=== PATIENT | male | born 2000 | race Caucasian/White ===

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

== ENCOUNTER 2023-03-23 12:43 | Outpatient (CLI) | payer BC ==
--- NOTE | 2023-03-23 15:38 | XRAY Report ---
PROCEDURE: Foot 2 View RT INDICATIONS: PAIN IN RIGHT FOOT TECHNIQUE: 2 views of the foot were acquired. COMPARISON: None. FINDINGS: Bones: No fractures or dislocations. No suspicious bony lesions. There is flexion at the ankle praneeth int. This could be positional. Soft tissues: No suspicious soft tissue calcifications or masses. IMPRESSION: No visualized acute fracture or dislocation. However, occult injury cannot be excluded. Recommend leif rt interval imaging follow-up in 7-10 days as clinically indicated for additional evaluation. Reviewed by: Savanna Toro MD on 03/23/2023 3:36 PM PDT Approved by: Savanna Toro MD on 03/23/2023 3:36 PM PDT Station ID: [id number]
== END 2023-03-23 12:44 | disposition home or self-care (01) ==
LOC: DI 12:43
PROVIDERS: ATTEND Nurse Practitioner
DX: M79.671 Pain in right foot (principal)

== ENCOUNTER 2023-05-01 16:44 | Outpatient (CLI) | payer BC ==
--- NOTE | 2023-05-02 11:22 | MRI Report ---
PROCEDURE: ANKLE WO - RT INDICATIONS: RIGHT HEEL PAIN TECHNIQUE: Noncontrast Magnetic Resonance Imaging (MRI) of the ankle/hindfoot was performed utilizing the follow ing sequences: sagittal T1 spin echo, sagittal T2 fast spin echo with fat saturation, axial PD fast s pin echo, axial T2 fast spin echo with fat saturation, coronal T1 spin echo, and coronal T2 fast spin echo with fat saturation. COMPARISON: Right foot radiographs 03/23/2023 FINDINGS: Image quality: Excellent. Bones and joints: No acute trabecular bone injury or fracture. No hindfoot coalition. The ankle mortise is maintained. No osteochondral defect is seen at the talar dome. No significant degenerative changes are seen in t he midfoot or hindfoot. Medial structures: The deltoid ligament and the spring ligament complex are intact. There is tenosynovitis of the armhole sewer ior tibialis, flexor digitorum longus and flexor hallucis longus tendons are intact. The posterior ti bial neurovascular bundle appears normal within the tarsal tunnel, without extrinsic mass effect. Lateral structures: The anterior and posterior distal tibiofibular ligaments are intact. Remote prior sprains of the ante rior talofibular ligament and calcaneofibular ligament. The posterior talofibular ligament is intact. Mild tenosynovitis of the peroneus longus tendon at the plantar aspect of the foot. The peroneus clotilde vis tendon is intact. The sinus tarsi demonstrates normal fatty signal. Anterior structures: The tibialis anterior, extensor hallucis longus, and extensor digitorum longus tendons appear intact. Posterior and plantar structures: The Achilles tendon is intact. The proximal plantar fascia is intact. No disproportionate atrophy of the abductor digiti minimi muscle. IMPRESSION: 1.Mild to moderate tenosynovitis of the medial flexor tendons. 2.Remote prior low-grade sprains of the anterior talofibular ligament and calcaneofibular ligament. 3.Mild distal peroneus longus tendon synovitis at the plantar aspect of the foot. Reviewed by: Rajesh Gruber MD on 05/02/2023 11:21 AM PDT Approved by: Rajesh Gruber MD on 05/02/2023 11:21 AM PDT Station ID: [id number]
== END 2023-05-01 16:45 | disposition home or self-care (01) ==
LOC: DI 16:44
PROVIDERS: ATTEND Physician Assistant
DX: M65.9 Synovitis and tenosynovitis, unspecified (principal); S93.491D Sprain of other ligament of right ankle, subsequent encounter; S93.411D Sprain of calcaneofibular ligament of right ankle, subsequent encounter

== ENCOUNTER 2023-10-26 08:37 | Outpatient (CLI) | payer BC ==
--- NOTE | 2023-10-26 19:39 | XRAY Report ---
PROCEDURE: Wrist 3+V LT INDICATIONS: PAIN IN LEFT WRIST TECHNIQUE: 3 views of the wrist were acquired. COMPARISON: None FINDINGS: Bones: No fractures or dislocations. No suspicious bony lesions. Soft tissues: No suspicious soft tissue calcifications or masses. IMPRESSION: Unremarkable wrist radiographs Reviewed by: Jt Avila MD on 10/26/2023 6:38 PM [place] Approved by: Jt Avila MD on 10/26/2023 6:38 PM [place] Station ID: [id number]
== END 2023-10-26 08:38 | disposition home or self-care (01) ==
LOC: DI.N 08:37
PROVIDERS: ATTEND Physician Assistant Medical
DX: M25.532 Pain in left wrist (principal)

== ENCOUNTER 2023-11-15 18:26 | Outpatient (CLI) | payer BC ==
--- NOTE | 2023-11-16 13:25 | Ultrasound Report ---
PROCEDURE: Testicle INDICATIONS: TESTICULAR PAIN TECHNIQUE: Real-time scanning was performed of the scrotum and testicles, with image documentation. Color and p ulse Doppler interrogation was performed of both testicles. COMPARISON: None. FINDINGS: Right: Testicle is normal in size at 4.6 x 2.1 x 2.5 cm, and homogenous in echotexture. Epididymal tail simple cyst measuring 0.8 x 0.6 cm. Epididymis is otherwise normal in overall size and morpholog y. No hydrocele. No varicoceles. Overlying scrotal skin is normal in thickness. Left: Testicle is normal in size at 4.2 x 1.9 x 3 cm, and homogeneous in echotexture. Epididymis is normal in overall size and morphology. No hydrocele. No varicoceles. Overlying scrotal skin is nor mal in thickness. Doppler: Color and pulse Doppler demonstrate normal and symmetric arterial flow in both testicles. Miscellaneous: Small fat-containing left inguinal hernia. Tiny vessels also protrude through the defe ct. IMPRESSION: 1.No testicular torsion or testicular sonographic abnormality. 2.Small fat-containing left inguinal hernia. Tiny vessels also protrude through the hernia defect. Reviewed by: Clint Garner MD on 11/16/2023 1:24 PM PST Approved by: Clint Garner MD on 11/16/2023 1:24 PM PST Station ID: [id number]
== END 2023-11-15 18:27 | disposition home or self-care (01) ==
LOC: DI 18:26
PROVIDERS: ATTEND Physician Assistant
DX: N50.812 Left testicular pain (principal); K40.90 Unilateral inguinal hernia, without obstruction or gangrene, not specified as recurrent

== ENCOUNTER 2023-12-19 08:19 | Outpatient (CLI) | payer BC ==
[2023-12-19] MEDS ORDERED: iohexoL-300 100 ML VIAL ONE (08:28)
[2023-12-19] MEDS ORDERED: DIATRIZOATE MEGLU/DIATRIZO SOD 30 ML BOTTLE PO ONE (08:28)
[2023-12-19] MEDS: DIATRIZOATE MEGLU/DIATRIZO SOD 30 ML BOTTLE PO ONE (09:58)
[2023-12-19] MEDS: iohexoL-300 100 ML VIAL IVP ONE (09:58)
--- NOTE | 2023-12-19 11:16 | CT Report ---
PROCEDURE: Abdomen/Pelvis W INDICATIONS: LOWER ABD PAIN CONTRAST: Omni 300 100ml TECHNIQUE: After the administration of intravenous contrast, a CT scan of the abdomen and pelvis was performed. Images were recorded and evaluated at appropriate window settings. Reformats: coronal and sagittal. F or radiation dose reduction, the following was used: automated exposure control, adjustment of mA and /or kV according to patient size. COMPARISON: None. FINDINGS: Image quality: Diagnostic. Lower chest: Unremarkable. Liver: No solid mass. Gallbladder and biliary tree: Spleen: No splenomegaly. Note is made of a 2 cm splenule medial to the spleen/splenic hilum. Pancreas: No pancreatic ductal dilation. Adrenals: Subcentimeter left adrenal nodule, incompletely evaluated. Kidneys and ureters: No hydronephrosis. No renal cystic lesion which requires follow up. No solid mas s. Stomach, bowel and peritoneum: No bowel distension. No pathologic free fluid. 6 mm contrast-filled ap pendix with no periappendiceal fat stranding Lymph nodes: No central or retroperitoneal adenopathy. Vessels: No infrarenal aortic aneurysm. PELVIS Reproductive organs: Unremarkable. Bladder: No abnormal wall thickening, accounting for underdistention. Pelvic lymph nodes: No pelvic adenopathy by size criteria. Bones: No aggressive osseous abnormality. Other: No significant ventral or inguinal hernia. IMPRESSION: 1. No CT findings to explain patient's symptomology 2. Subcentimeter indeterminate left adrenal nodule of questionable clinical significance Reviewed by: Darien Saleem MD on 12/19/2023 11:15 AM PDT Approved by: Darien Saleem MD on 12/19/2023 11:15 AM PDT Station ID: [id number]
== END 2023-12-19 08:20 | disposition home or self-care (01) ==
LOC: DI 08:19
PROVIDERS: ATTEND Physician Assistant
DX: R10.30 Lower abdominal pain, unspecified (principal); R10.2 Pelvic and perineal pain; E27.9 Disorder of adrenal gland, unspecified
CPT/HCPCS: 74177; Q9963; Q9967

== ENCOUNTER 2024-04-07 14:29 | Outpatient (CLI) | payer BC ==
[2024-04-07 15:31] LABS: ALBUMIN/GLOBULIN RATIO 1.7 (1.0-2.2); BILIRUBIN,TOTAL 0.4 mg/dL (0.2-1.0); CALCIUM 10.1 mg/dL (8.5-10.3); CREATININE 0.9 mg/dL (0.6-1.3); POTASSIUM 3.9 mmol/L (3.5-4.5); TOTAL PROTEIN 7.9 g/dL (6.4-8.9)
[2024-04-07 16:33] LABS: FERRITIN 114.4 ng/mL (23.9-336.2)
[2024-04-08 03:09] LABS: HIV SCREEN 4TH GENERATION Non Reactive (Non Reactive)
[2024-04-08 04:09] LABS: HBsAG SCREEN Negative (Negative)
== END 2024-04-07 14:30 | disposition home or self-care (01) ==
LOC: LAB 14:29
PROVIDERS: ATTEND Family Medicine
DX: R19.5 Other fecal abnormalities (principal); R10.11 Right upper quadrant pain
CPT/HCPCS: 36415; 80053; 82705; 82710; 82728; 83690; 86709; 86803; 87045; 87046; 87177; 87209; 87329; 87340; 87389; 87427

== ENCOUNTER 2024-04-09 07:58 | Outpatient (CLI) | payer BC ==
--- NOTE | 2024-04-09 15:28 | Ultrasound Report ---
PROCEDURE: Abdomen Limited INDICATIONS: RUQ ABD PAIN TECHNIQUE: Real-time focused scanning was performed of the abdomen, with image documentation. COMPARISONS: CT abdomen and pelvis on December 19, 2023. FINDINGS: Liver: Liver is normal in size and homogeneous in echotexture. Gallbladder: No gallstones, sludge, wall thickening or pericholecystic edema. Biliary ducts: Intrahepatic bile ducts are non-dilated. Extrahepatic bile duct caliber measures 2.7 mm. Normal is 6-7 mm or less in diameter, or 10 mm or less post-cholecystectomy. Pancreas: Visualized portions of the pancreas are sonographically normal. Right kidney: Normal in size and echotexture. Right kidney measures cm long. No hydronephrosis or ne phrolithiasis. No solid masses. No complex renal cystic lesions which require follow-up. IVC: Intrahepatic inferior vena cava is patent. Miscellaneous: No free abdominal fluid. IMPRESSION: Unremarkable right upper quadrant abdominal ultrasound. Reviewed by: Clint Garner MD on 04/09/2024 3:27 PM PDT Approved by: Clint Garner MD on 04/09/2024 3:27 PM PDT Station ID: [id number]
== END 2024-04-09 07:59 | disposition home or self-care (01) ==
LOC: DI 07:58
PROVIDERS: ATTEND Family Medicine
DX: R10.11 Right upper quadrant pain (principal); R19.5 Other fecal abnormalities

== ENCOUNTER 2024-04-27 16:27 | Emergency (ER) | payer BC ==
[2024-04-27 16:46] VITALS: O2SAT 100
--- NOTE | 2024-04-27 17:42 | ED Physician Documentation ---
PD HPI FOCAL NEURO - Stated complaint Stated Complaint: LT SIDE NUMBNESS - Chief complaint Chief Complaint: General - History obtained from History obtained from: Patient - History of Present Illness Timing - onset: How many months ago (4-5 months of intermittent tingling in left arm/fingers and leg, particularly in AMs. Has been more consistent the past several weeks or so. Seen by PCP and had labs done recently and also EMG 04/12 without results to him as yet. Now with left facial numbness on cheek and some left sided headache.) Timing - details: Gradual onset, Still present, Waxing and waning Severity of deficit: Moderate Weakness: No: Face, Arm, Hand, Leg Numbness: Face, Arm, Hand, Leg Associated symptoms: Headache (the past week or two, intermittently mild pressure.). No: Nausea / vomiting, Syncope Baseline status: positive: A&OX3, ambulatory, indep Similar symptoms before: Has not had sx before Recently seen: Clinic Review of Systems Constitutional: denies: Fever, Chills Nose: denies: Rhinorrhea / runny nose, Congestion Cardiac: denies: Chest pain / pressure Respiratory: denies: Cough GI: denies: Abdominal Pain, Nausea, Vomiting, Diarrhea Skin: denies: Rash, Lesions Musculoskeletal: denies: Neck pain, Back pain Neurologic: reports: Numbness. denies: Generalized weakness, Focal weakness, Near syncope, Confused, Altered mental status PD PAST MEDICAL HISTORY - Past Medical History Past Medical History: Yes Cardiovascular: None Respiratory: None Neuro: None Endocrine/Autoimmune: None GI: None : None HEENT: None Psych: None Musculoskeletal: None Derm: None - Past Surgical History Past Surgical History: No - Present Medications Home Medications: Ambulatory Orders Medication Instructions Recorded Confirmed Meloxicam [Mobic] 7.5 mg PO BID 10 Days #20 tablet 04/27/24 dexAMETHasone [Decadron] 4 mg PO DAILY #5 tablet 04/27/24 - Allergies Allergies/Adverse Reactions: Allergies Allergy/AdvReac Type Severity Reaction Status Date / Time No Known Drug Allergies Allergy Verified 04/27/24 16:34 - Social History Does the pt smoke?: No Smoking Status: Never smoker Does the pt drink ETOH?: No Does the pt have substance abuse?: No - Immunizations Immunizations are current?: Yes - POLST Patient has POLST: No PD ED PE NORMAL - Vitals Vital signs reviewed: Yes - General General: Alert and oriented X 3, No acute distress, Well developed/nourished - Neck Neck: Supple, no meningeal sign, No adenopathy, No bruit - Cardiac Cardiac: RRR, No murmur - Respiratory Respiratory: No respiratory distress, Clear bilaterally - Derm Derm: Normal color, Warm and dry - Neuro Neuro: Alert and oriented X 3, tongue stitcher 2-12 intact, No motor deficit, No sensory deficit, Normal speech Results - Vitals Vitals: Oxygen O2 Source Room air - Labs Labs: Laboratory Tests 04/27/24 04/27/24 04/27/24 19:04 19:04 19:04 WBC 7.5 RBC 5.04 Hgb 14.6 Hct 43.9 MCV 87.1 MCH 29.0 MCHC 33.3 RDW 13.0 Plt Count 230 MPV 10.5 Neut # (Auto) 4.9 Lymph # (Auto) 1.9 Sanders # (Auto) 0.4 Eos # (Auto) 0.2 Baso # (Auto) 0.0 Absolute Nucleated RBC 0.00 Nucleated RBC % 0.0 ESR 1 Sodium 138 Potassium 3.9 Chloride 104 Carbon Dioxide 29 Anion Gap 5.0 L BUN 11 Creatinine 0.9 Estimated GFR (MDRD) 106 Glucose 91 Calcium 9.9 Phosphorus 3.9 Magnesium 1.8 Total Bilirubin 0.3 AST 20 ALT 30 Alkaline Phosphatase 92 Total Creatine Kinase 143 C-Reactive Protein < 0.5 Total Protein 7.3 Albumin 4.6 Globulin 2.7 Albumin/Globulin Ratio 1.7 Lipase 18 Vitamin B12 225 TSH 1.91 PD Medical Decision Making - ED course Complexity details: reviewed results (labs pending at discharge. MRI I feel would be nonemergent given timecourse and dgree of symptoms, but urgent could be justified. Discussion with pt that not feeling he needed transfer to other facility tonight, but could get MRI in few days. MS would be on list, also tumor, focal swelling. Less lik), considered differential (I did look up the blood tests he had recently and see some gaps in the testing, such as TSH, Mag, esr/etc. so ordered some labs here to flush out my thinking on his symptoms. MRI brain would be good and he is getting outpt schedfuled. We do not have available today/tomorrow.), d/w patient Departure - Departure Disposition: Home, Self Care Clinical Impression: Numbness and tingling, Headache Condition: Stable Record reviewed to determine appropriate education?: Yes Follow-Up: Patricia Pacheco PA [Primary Care Provider] - Prescriptions: dexAMETHasone [Decadron] 4 mg PO DAILY #5 tablet Meloxicam [Mobic] 7.5 mg PO BID 10 Days #20 tablet Comments: There were some other areas on your blood tests that I would think about 4 metabolic or neurologic peripheral conditions and even that could involve the face. We therefore leida some more blood tests this evening. Several of these are not going to result this evening. They will come back in the next day or 2. They can be followed up through your primary care. MRI imaging would seem appropriate. I would not say that it is emergent based at this point in time but timely/urgent would be good. We do not have MRI available [facility] and I do not think I would be able to send you elsewhere to get 1 in this timeframe. However we would have MRI available on Sunday. I cannot make an appointment per se but I would suggest coming back to the ER in the morning Sunday or Sunday and we would try to get a more timely brain MRI. Meanwhile I would go with some anti-inflammatories to see if that would generally help. Add Tylenol if needed for headache. Return turn to the ER certainly if you have a notable uptick in symptoms over the next few days. I sent prescriptions to your preferred pharmacy. Forms: PCP List Discharge Date/Time: 04/27/24 19:14
[2024-04-27] MEDS: ACETAMINOPHEN 500 MG TABLET PO STA (18:54)
[2024-04-27] MEDS: dexAMETHasone 4 MG TABLET PO STA (18:55)
[2024-04-27] MEDS: IBUPROFEN 600 MG TABLET PO STA (18:55)
[2024-04-27 19:11] LABS: BASOPHILS % (AUTO) 0.4 %; EOSINOPHILS # (AUTO) 0.2 10^3/uL (0.0-0.7); EOSINOPHILS % (AUTO) 3.1 %; HCT - HEMATOCRIT 43.9 % (42.0-52.0); HGB - HEMOGLOBIN 14.6 g/dL (14.0-18.0); LYMPHOCYTES # (AUTO) 1.9 10^3/uL (1.5-3.5); MEAN CORPUSCULAR HGB CONC 33.3 g/dL (32.0-36.0); MEAN CORPUSCULAR VOLUME 87.1 fL (80.0-94.0); MEAN PLATELET VOLUME 10.5 fL (7.4-11.4); MONOCYTES # (AUTO) 0.4 10^3/uL (0.0-1.0); MONOCYTES % (AUTO) 5.7 %; NEUTROPHILS # (AUTO) 4.9 10^3/uL (1.5-6.6); NEUTROPHILS % (AUTO) 65.5 %; PLT - PLATELET COUNT 230 10^3/uL (130-450); RED BLOOD COUNT 5.04 10^6/uL (4.70-6.10); WHITE BLOOD COUNT 7.5 x10^3/uL (4.8-10.8)
[2024-04-27 19:21] VITALS: BP 120/80
[2024-04-27 19:28] LABS: ALBUMIN 4.6 g/dL (3.2-5.5); ALBUMIN/GLOBULIN RATIO 1.7 (1.0-2.2); ALKALINE PHOSPHATASE 92 IU/L (42-121); ALT ALANINE AMINOTRANSFERASE 30 IU/L (10-60); AST ASPARTATE AMINOTRANSFERASE 20 IU/L (10-42); BILIRUBIN,TOTAL 0.3 mg/dL (0.2-1.0); BUN - BLOOD UREA NITROGEN 11 mg/dL (6-20); CALCIUM 9.9 mg/dL (8.5-10.3); CARBON DIOXIDE - CO2 29 mmol/L (21-32); CHLORIDE 104 mmol/L (101-111); CK- CREATINE KINASE 143 IU/L (30-223); CREATININE 0.9 mg/dL (0.6-1.3); CRP - C-REACTIVE PROTEIN < 0.5 mg/dL (<0.5); GFR - MDRD 106 (>89); GLUCOSE 91 mg/dL (74-104); LIPASE 18 U/L (11-82); MAGNESIUM 1.8 mg/dL (1.7-2.3); PHOSPHORUS 3.9 mg/dL (2.5-5.0); POTASSIUM 3.9 mmol/L (3.5-4.5); SODIUM 138 mmol/L (135-145); TOTAL PROTEIN 7.3 g/dL (6.4-8.9)
[2024-04-27 20:20] LABS: THYROID STIMULATING HORMONE 1.91 uIU/mL (0.34-5.60)
[2024-04-30 10:33] LABS: ARSENIC BLOOD <1 ug/L (0-9); LEAD BLOOD <1.0 ug/dL (0.0-3.4); MERCURY BLOOD <1.0 ug/L (0.0-14.9)
== END 2024-04-27 19:14 | disposition home or self-care (01) ==
LOC: ED 16:27
DX: R20.0 Anesthesia of skin (principal); R51.9 Headache, unspecified
CPT/HCPCS: 36415; 80053; 82175; 82550; 82607; 83655; 83690; 83735; 83825; 84100; 84207; 84443; 85025; 85651; 86140; 99283; A9270; J8540